=== PATIENT | male | born 1955 | race African-American/Black ===

== ENCOUNTER 2024-10-04 04:22 | Emergency (ER) | payer MEDICARE, MEDICAID ==
[~2024-10-04] VITALS: Ht 182.9 cm; Wt 110.0 kg
[2024-10-04] MEDS ORDERED: ONDANSETRON HCL 4MG/2ML INJ IV STA (04:47)
[2024-10-04] MEDS ORDERED: METHYLPREDNISOLONE SOD SUCC 125MG/2ML (ACT-O-VIAL) IV STA (04:47)
[2024-10-04] MEDS ORDERED: MORPHINE SULFATE 4 MG/ML INJ (FOR IV/IM USE) IV ONE (05:00)
[2024-10-04] MEDS: ALBUTEROL (0.083%) 2.5MG/3ML NEB HHN SCH (05:13)
[2024-10-04 05:15] VITALS: PULSE 102; RESP 16; O2SAT 97
[2024-10-04] MEDS: IPRATROPIUM BROMIDE (0.02%) 0.5MG/2.5ML NEB HHN STA (05:15)
[2024-10-04] MEDS: MAGNESIUM 2 G PREMIX 50 ML IV ONE (06:55)
[2024-10-04] MEDS: METHYLPREDNISOLONE SOD SUCC 125MG/2ML (ACT-O-VIAL) IV NR (07:11)
[2024-10-04] MEDS: ONDANSETRON HCL 4MG/2ML INJ IV NR (07:11)
[2024-10-04] MEDS: MORPHINE SULFATE 4 MG/ML INJ (FOR IV/IM USE) IV NR (07:11)
[2024-10-04 09:49] VITALS: BP 139/75; PULSE 90; RESP 20; TEMP 36.94740; O2SAT 91
[2024-10-04 09:50] LABS: BG BASE EXCESS 0.2 mmol/L (-2.0-3.0); BG CARBOXYHEMOGLOBIN 2.9 % (0.5-1.5); BG DEOXYHEMOGLOBIN 9.3 % (0.0-5.0); BG FRACTION INSPIRED OXYGEN 36; BG HCO3 ACT 27.1 mmol/L (21.0-28.0); BG METHEMOGLOBIN 0.3 % (0.5-1.5); BG OXYGEN SATURATION 90.4 % (94.0-98.0); BG OXYHEMOGLOBIN 87.5 % (94.0-98.0); BG PCO2 51.8 mmHg (35.0-48.0); BG PH 7.336 (7.350-7.450); BG PO2 62.4 mmHg (83.0-108.0); BG SAMPLE SITE RIGHT RADIAL; BG TOTAL HEMOGLOBIN 15.9 g/dL (13.5-17.5); BG VENT MODE NASAL CANNULA
== END 2024-10-04 09:57 | disposition short-term general hospital (02) ==
LOC: ER 04:46 → EDBEDREQ 04:55 → ER 09:57
DX: J44.9 Chronic obstructive pulmonary disease, unspecified (principal)
CPT/HCPCS: 99285; 74176; 96365; 96375; 71045; 94640; 82805; 82375; 36600; J3475; J2919; J2405; J2270